=== PATIENT | male | born 1960 | race Caucasian/White ===

== ENCOUNTER → 2021-03-30 15:06 | Outpatient (CLI) | payer OTHER, SELFPAY ==
--- NOTE | ~2021-03-30 | XR_ITS ---
XR knee RT min 4V 03/30/2021 15:46 Indication: Right knee pain Procedure: 4 views right knee Comparison: 02/02/2000 Findings: There is joint space narrowing medial compartment of the right knee. Small joint effusion. No fracture, subluxation or dislocation. Impression: 1: Mild osteoarthritis of the right knee primarily involving the medial compartment. Reviewed, dictated and finalized at location A. Impression: 1: Mild osteoarthritis of the right knee primarily involving the medial compart ment.
== END ==
PROVIDERS: PCP Family Medicine; Visit Provider Physician Assistant
DX: M17.11 Unilateral primary osteoarthritis, right knee (principal)
CPT/HCPCS: 73564

== ENCOUNTER → 2021-04-24 01:03 | Outpatient (CLI) | payer OTHER, SELFPAY ==
[2021-04-24 17:04] LABS: SARS-CoV-2 RNA PCR Negative
== END ==
PROVIDERS: PCP Family Medicine; Visit Provider Orthopaedic Surgery
DX: Z01.812 Encounter for preprocedural laboratory examination (principal); Z20.822 Contact with and (suspected) exposure to COVID-19
CPT/HCPCS: C9803; U0003; U0005

== ENCOUNTER 2021-04-26 09:18 | Outpatient (CLI) | payer OTHER, SELFPAY ==
--- NOTE | 2021-04-26 09:30 | ECG_ITS ---
Measurements Intervals [place] Rate: 80 P: 41 AR: 180 QRS: 48 QRSD: 105 T: 50 QT: 364 QTc: 420 Interpretive Statements SINUS RHYTHM CANNOT RULE OUT SEPTAL INFARCT, AGE INDETERMINATE BASELINE ARTIFACT- I, II, III, AVR, AVL, AVF ABNORMAL ECG Electronically Signed On 04-26-2021 9:37:48 CDT by Eren Marroquin D.O.
[2021-04-26 10:01] LABS: Anion Gap 8 mmol/L (8-16); Blood Urea Nitrogen 14 mg/dL (9-20); Calcium 9.6 mg/dL (8.4-10.2); Carbon Dioxide 30 mmol/L (22-30); Chloride 101 mmol/L (98-107); Estimated Glomerular Filt Rate > 60; Glucose 116 mg/dL (65-110); Sodium 139 mmol/L (137-145)
== END 2021-04-26 09:19 | disposition home or self-care (01) ==
LOC: ANHSURGERY 09:22
PROVIDERS: Anesthesiology; PCP Family Medicine; Visit Provider Orthopaedic Surgery
DX: Z01.818 Encounter for other preprocedural examination (principal); I10 Essential (primary) hypertension; Z79.899 Other long term (current) drug therapy; R94.31 Abnormal electrocardiogram [ECG] [EKG]
CPT/HCPCS: 36415; 80048; 93005

== ENCOUNTER 2021-04-27 03:43 | Day surgery (SDC) | payer OTHER, SELFPAY ==
[2021-04-23 11:53] VITALS: BMI 31.4
--- NOTE | 2021-04-26 12:11 | WPDANESEPPF ---
Anes - Initial Pre Proc Eval Procedure: Operation Date: 04/27/21 14:00 Proposed Procedures p Right Knee Arthroscopy, Partial Medial Meniscectomy - Herb Mcfadden MD Date/Time: 04/26/21 12:11 Surgeon: Herb Mcfadden MD Pre Op Diagnosis: right knee medial meniscus tear Patient Data Age: 60 Gender: M Height: 1.88 m Weight: 111.13 kg Allergies Allergy/AdvReac Type Severity Reaction Status Date / Time No Known Allergies Allergy Verified 04/27/21 12:00 Home Medications Medication Instructions Recorded Confirmed Type hydrochlorothiazide 12.5 mg tablet 12.5 mg PO DAILY #90 tablet 07/16/20 04/27/21 Rx amlodipine 5 mg-valsartan 320 mg See Rx Instructions .ROUTE 12/29/20 04/27/21 Rx tablet .COMPLEX #90 tablet hydrocodone 5 mg-acetaminophen 325 1 tablet PO Q6H PRN #30 tablet 04/13/21 04/23/21 Rx mg tablet Patient hx anesthesia problems: none Family hx anesthesia problems: none Results Review: All pre-operative results and documents have been reviewed as part of the pre-operative evaluation. FORMERLY [facility], [facility] Past Medical History Medical History (Updated 04/27/21 @ 12:18 by Manjit Atkinson DO) Hypertension Surgical History Surgical History History of left knee surgery Family History Family History Mother Hypertension Father Malignant neoplasm of prostate Social History Social History Smoking packs per day: 1.5 Smoking cigarettes per day: 30.0 Years smoked: 10 Smoking pack-years: 15.00 Smoking status: Former smoker Smokeless tobacco user: chewing tobacco Smoking end date: 07/10/95 Alcohol intake: current Drinks per week: 1 Alcohol use details: rare Substance use: never Substance use type: does not use Living arrangements: with family 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 Informed Consent: The patient's anesthetic plan and its attendant risks and benefits were discussed with the patient/family/POA. Questions were solicited and answers provided to the satisfaction of the patient/family/POA.
[2021-04-27] VITALS (8 sets, daily range): BP systolic 127–153; BP diastolic 65–92; PULSE 58–88; RESP 10–18; TEMP 36.3–36.6; O2SAT 98–100
[2021-04-27] MEDS: LACTATED RINGERS 1,000 ML 30 ML IV CONT ×2 (12:20→14:32)
[2021-04-27] MEDS: ACETAMINOPHEN 500 MG TABLET 1000 MG PO (12:21)
[2021-04-27] MEDS: KETOROLAC 15 MG/ML VIAL (*BKC) IV PUSH (12:22)
--- NOTE | 2021-04-27 13:30 | WPDHPUPDATE1 ---
History and Physical Update Update Date/Time: 04/27/21 13:30 History and Physical has been reviewed, including an updated exam of the patient. There are NO changes in the patient's condition. Risks, benefits, and alternatives have been discussed and questions answered. Patient agrees to proceed with procedure.
[2021-04-27] MEDS: ceFAZolin 2 GM/D5W 50 ML 2 GM/50 ML BAG IVPB (13:39)
[2021-04-27] MEDS: BUPIVACAINE HCL 0.5% PF 30 ML VIAL INFILTRATE (14:09)
--- NOTE | 2021-04-27 16:44 | W.PM.PROC2 ---
Procedure Note - Detailed Date of Procedure 04/27/21 Pre-op Diagnosis Right knee medial meniscus tear Post-op Diagnosis same Procedure Performed Arthroscopic partial medial meniscectomy, right knee. Surgeon Herb Mcfadden MD Electrical Maintenance Man Afua Dorantes PA-C Anesthesia general Findings Extensive parrot beak tear. Highly unstable flap. Subtotal meniscectomy posterior and medial. Medial femur chondromalacia grade 2/3, medial tibia grade 1. Lateral femur chondromalacia grade 0/1, lateral tibia grade 0. Patellar grade 1, trochlea grade 0. No MCL laxity. ACL slightly irregular contour as noted on the MRI, but without evidence for acute injury. Mohsen's test under direct vision appeared negative with normal ACL function. Description of Procedure The patient was identified and the surgical site confirmed and signed in the preoperative holding area. Antibiotics were started per protocol. He was brought to the operative room and transferred to the OR table. A general anesthetic was administered. Supine position with the operative lower extremity position in the leg cooper after placement of a well padded tourniquet. The leg support was lowered and the contralateral limb was supported with a soft bolster. The knee was prepped and draped in the usual sterile fashion. A time-out was performed. The portal sites were marked and infiltrated with 0.5% Marcaine 20 mL. The limb was exsanguinated and the tourniquet inflated to 300 mL Hg. Standard inferolateral and inferomedial portals were established. Inflow was obtained with the saline pump. The camera was introduced. Diagnostic inspection of the joint was accomplished. The meniscus was debrided with the arthroscopic shaver and punches until stable. The radiofrequency probe was also used for further d?bridement. Gentle chondroplasty performed on the medial femoral condyle. The arthroscopic instruments were removed. The tourniquet released and wounds closed with subcutaneous 4-0 Monocryl absorbable suture. Steri strips and a sterile dressing were applied. A light elastic wrap was placed. The patient was extubated and brought to the recovery room in stable condition. Estimated Blood Loss -5.0 Tourniquet Time 15 Drains No Complications No immediate complications Condition stable Disposition PACU
== END 2021-04-27 16:10 | disposition home or self-care (01) ==
PROVIDERS: PCP Family Medicine; Visit Provider Orthopaedic Surgery
PROC: (CPT 29870; principal; 2021-04-27 14:00)
DX: S83.241A Other tear of medial meniscus, current injury, right knee, initial encounter (principal); X50.0XXA Overexertion from strenuous movement or load, initial encounter; I10 Essential (primary) hypertension; Z87.891 Personal history of nicotine dependence; E66.9 Obesity, unspecified; Z68.31 Body mass index [BMI] 31.0-31.9, adult
CPT/HCPCS: 29881; A9270; J0690; J1100; J1885; J2250; J2405; J2704; J3010; J7120

== ENCOUNTER 2023-04-11 08:24 | Outpatient (CLI) | payer OTHER, SELFPAY ==
--- NOTE | 2023-04-24 11:24 | WPDHOMESLEEP ---
Sleep Study - Home Unattended Date of Study: 04/11/23 Ordering Provider: Jesse Mariee MD Interpreting Provider: Radha Whyte MD Home Sleep Study Type: Watch PAT Height: 1.88 m Weight: 113.398 kg Body Mass Index: 32.1 Neck Circumference (inches): 17 [place]: 20 Reason for Sleep Study Hypersomnolence Sleep History Ja Blankenship is a 62-year-old man with loud snoring, nighttime awakenings and feeling tired during the day. His medical co-morbidities include hypertension and gastroesophageal reflux disease. He had a sleep study 8 years ago, reports that it was a bad experience with no definitive results. He is having a home sleep test to re-evaluate. He frequently awakens from sleep feeling short of breath. He frequently wakes at night with heartburn, belching or coughing.??He constantly snores, constantly snores loudly enough that others complain. He frequently has trouble sleeping when he has a cold. He occasionally wakes up gasping for breath during the night. He frequently has breathing problems at night. He frequently sweats excessively at night. He frequently notices his heart pounding or beating irregularly during the night. He frequently falls asleep during the day. He occasionally falls asleep involuntarily, frequently falls asleep while driving. He never experiences loss of muscle tone with strong emotion. 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 He never feels paralyzed on waking or falling asleep. He occasionally experiences vivid dreams upon waking or falling asleep. He never feels afraid of going to sleep. He occasionally has nightmares. He rarely recalls his dreams. He occasionally has thoughts racing through his mind. He rarely feels sad or depressed. He frequently feels anxiety. He frequently notices parts of his body jerk. He frequently kicks during the night. He constantly feels crawling or aching feelings in his legs. He constantly feels leg pain at night. He never grinds his teeth, never has morning jaw pain. He constantly feels bothered by pain during the day, frequently awakened by pain during the night. He constantly wakes up feeling stiff in the morning, constantly wakes feeling sore or achy in the morning. He constantly awakens with pain in his neck, spine, or joints. Normal bedtime is 7:00 p.m., usually falling asleep within 2 minutes. He wakes between 2 and 3 times at night to go to the bathroom. His normal wake time is 2:10 a.m. on week days. On weekends, his bedtime is later, 9:00 p.m., and his wake time us 7:00 a.m. He typically gets about 5 hours of sleep per night. He has memory problems, bowel disturbances, headache, fatigue and he takes antacids regularly. He takes naps in the afternoon or evening. A short nap lasting 10 or 15 minutes is not refreshing. He is usually drowsy for 2 hours after waking. He is tired in the morning with back pain, he is drowsy in the afternoon and he feels tired in the evening. Habits:??Tobacco:no comment Caffeine:2 per day. Alcohol:none Recreational substances: none PMFSH Past Medical History Medical History (Updated 04/24/23 @ 11:37 by Radha Whyte MD) Gastroesophageal reflux disease without esophagitis Hypertension Obstructive sleep apnea (adult) (pediatric) Surgical History Surgical History History of left knee surgery History of meniscectomy of right knee (~04/27/21) Partial Medial Family History Family History Mother Hypertension Father Malignant neoplasm of prostate Social History Social History Smoking packs per day: 1.5 Smoking cigarettes per day: 30.0 Years smoked: 10 Smoking pack-years: 15.00 Smoking status: Never smoker Smokeless tobacco user: chewing tobacco Smoking end date:
[2023-04-24 11:54] VITALS: BMI 32.1
== END 2023-04-11 15:30 | disposition home or self-care (01) ==
PROVIDERS: PCP Family Medicine; Visit Provider Family Medicine
DX: G47.30 Sleep apnea, unspecified (principal); G47.33 Obstructive sleep apnea (adult) (pediatric); Z68.32 Body mass index [BMI] 32.0-32.9, adult
CPT/HCPCS: 95800

== ENCOUNTER 2023-05-17 06:16 | Day surgery (SDC) | payer OTHER, SELFPAY ==
[2023-05-08 15:02] VITALS: BMI 32.2
--- NOTE | 2023-05-17 06:42 | P.PNAN_ITS ---
Anes - Initial Pre Proc Eval Procedure: Operation Date: 05/17/23 09:00 Proposed Procedures p Excision 4.5cm Mid Back Mass - Edson Franklin DO Date/Time: 05/17/23 06:42 Surgeon: Edson Franklin DO Pre Op Diagnosis: Back Mass Patient Data Age: 62 Gender: M Height: 1.88 m Weight: 113.852 kg Allergies Allergy/AdvReac Type Severity Reaction Status Date / Time No Known Allergies Allergy Verified 05/17/23 07:34 Home Medications Medication Instructions Recorded Confirmed Type amlodipine 5 mg-valsartan 320 mg See Rx Instructions .Route 04/21/23 05/17/23 Rx tablet .COMPLEX #90 tabs hydrochlorothiazide 12.5 mg tablet 12.5 mg PO DAILY #90 tabs 04/21/23 05/17/23 Rx zolpidem 10 mg tablet (Ambien) 10 mg PO ONCE #2 tabs 04/28/23 05/17/23 Rx Patient hx anesthesia problems: none Family hx anesthesia problems: none Results Review: All pre-operative results and documents have been reviewed as part of the pre- operative evaluation. [facility] Past Medical History Medical History Anxiety Gastroesophageal reflux disease without esophagitis Hypertension Obstructive sleep apnea (adult) (pediatric) Surgical History Surgical History History of left knee surgery History of meniscectomy of right knee (~04/27/21) Partial Medial Family History Family History Mother Hypertension Father Malignant neoplasm of prostate Social History Social History Smoking packs per day: 1.5 Smoking cigarettes per day: 30.0 Years smoked: 10 Smoking pack-years: 15.00 Smoking status: Never smoker Smokeless tobacco user: chewing tobacco Smoking end date: 07/10/95 Alcohol intake: current Drinks per week: 1 Alcohol use details: rare Substance use: never Substance use type: does not use Living arrangements: with family Occupation/Education: occupation 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 Informed Consent: The patient's anesthetic plan and its attendant risks and benefits were discussed with the patient/family/POA. Questions were solicited and answers provided to the satisfaction of the patient/family/POA.
[2023-05-17 07:30] VITALS: BP 139/87; PULSE 77; RESP 20; TEMP 36.3; O2SAT 97
[2023-05-17] MEDS: LACTATED RINGERS 1,000 ML 30 ML IV CONT (08:01)
--- NOTE | 2023-05-17 09:06 | WPDHPUPDATE1 ---
History and Physical Update Update Date/Time: 05/17/23 09:06 History and Physical has been reviewed, including an updated exam of the patient. There are NO changes in the patient's condition. Risks, benefits, and alternatives have been discussed and questions answered. Patient agrees to proceed with procedure.
[2023-05-17] MEDS: LIDO 1%/EPINEPHRINE 1:100,000 50 ML VIAL 10 ML INFILTRATE (09:54)
[2023-05-17] MEDS: BACITRACIN/POLYMYXIN B OINT 15 GM TUBE 1 APPLIC TOPICAL (09:55)
--- NOTE | 2023-05-17 10:05 | P.OP_ITS ---
Procedure Note - Detailed Date of Procedure 05/17/23 Pre-op Diagnosis Back Mass Post-op Diagnosis Same Procedure Performed excision of 4.5 cm mid back mass Surgeon Edson Franklin, DO Anesthesia MAC and Local ( 1% lidocaine with epinephrine) Indications this is a 62-year-old man who presented with a mid back mass that was causing discomfort. He had a prior history of this becoming red and draining a thick white material. It is currently not draining anything, but is still causes some discomfort. Discussions were made with the patient about treatment options and decision was made to proceed with excision of 4.5 cm back mass. Findings The 4.5 cm back mass was incised. This appeared to be likely a cyst on the surface, but as I dissected deeper there also appeared to be a lipoma associated with it. The entire mass was excised and sent to the lab for pathology. Description of Procedure Procedure as well as risks, benefits, and alternatives were discussed with the patient. Written consent was obtained and placed in chart prior to procedure. Patient was brought back to surgical suite. He was placed in left lateral decubitus position on the operating table. Time-out was done to confirm patient and procedure. IV sedation was then administered by the anesthesia department. His back area was prepped and draped in sterile fashion using chlorhexidine prep. 1% lidocaine with epinephrine was infiltrated locally around the mass. A vertical elliptical incision was then made around the mass using a 15 blade scalpel. The mass was sharply excised using the 15 blade scalpel. The mass was completely excised intact and was sent to the lab for pathology. Hemostasis was then achieved with electrocautery. The wound bed was then inspected no other masses or abnormalities were noted. The wound edges were then reapproximated using 3-0 nylon vertical mattress interrupted sutures. Bacitracin ointment was then applied followed by 4 x 4 gauze and Medipore tape. The patient was then aw akened from anesthesia and transferred to recovery. Estimated Blood Loss 5 Pathology Yes (Back mass) Complications No immediate complications Condition Stable Disposition Same day [facility] Billing Surgery - Charge Forward: Surgery Billing
[2023-05-17 10:07] VITALS: BP 112/67; PULSE 67; RESP 16; O2SAT 97
[2023-05-17 10:17] VITALS: BP 119/76; PULSE 69; RESP 16; O2SAT 97
--- NOTE | 2023-05-17 10:17 | WPDANESPN ---
Anes - Prog Note Post-Op Date/Time: 05/17/23 10:17 Cardiovascular status: normal Respiratory status: normal Airway patency: baseline Mental status: baseline Post-Op hydration status: normal Vital Signs: Last Vital Signs Temp 36.3 C L 05/17/23 07:30 Pulse 67 05/17/23 10:07 Resp 16 05/17/23 10:07 BP 112/67 05/17/23 10:07 Pulse Ox 97 05/17/23 10:07 O2 Del Method Room Air 05/17/23 10:07 Pain Score (VAS): 0 I/O: Intake & Output 05/16/23 05/17/23 05/17/23 23:59 07:59 15:59 Intake Total 400 Balance 400 Post-procedural complaints: none Patient Feedback: Patient satisfied with anesthetic care. Other Findings: Patient vital signs back to baseline. Patient denies nausea and vomiting. Patient's pain under control. Patient OK for discharge.
[2023-05-17 10:27] VITALS: BP 113/80; PULSE 66; RESP 15; O2SAT 99
[2023-05-17 10:37] VITALS: BP 113/80; PULSE 66; RESP 15; O2SAT 99
== END 2023-05-17 10:40 | disposition home or self-care (01) ==
PROVIDERS: PCP Family Medicine; Visit Provider Surgery
PROC: (CPT 21931; principal; 2023-05-17 09:00)
DX: R22.2 Localized swelling, mass and lump, trunk (principal)
CPT/HCPCS: 21931

== ENCOUNTER 2023-05-17 07:00 | Outpatient (NON) | payer OTHER, SELFPAY | END 2023-05-17 07:01 | disposition home or self-care (01) | LOC: ANHLAB 05-18 11:14 | PROVIDERS: PCP Family Medicine; Visit Provider Surgery | DX: D17.1 Benign lipomatous neoplasm of skin and subcutaneous tissue of trunk (principal); L30.8 Other specified dermatitis | CPT/HCPCS: 88304 ==

== ENCOUNTER 2023-10-06 06:58 | Outpatient (CLI) | payer OTHER, SELFPAY ==
--- NOTE | ~2023-10-06 | XR_ITS ---
EXAMINATION: XR knee RT min 4V DATE: 10/06/2023 07:20 INDICATION: Right knee pain TECHNIQUE: Four views of the right knee were obtained. COMPARISON: 03/30/2021 FINDINGS: Alignment is normal. No fracture or osteochondral lesion. There is mild narrowing of the me dial compartment without significant change. There is a small knee joint effusion. Soft tissues are u nremarkable. IMPRESSION: 1. Chronic narrowing of the medial compartment without acute osseous abnormality. Reviewed, dictated and finalized at location A. IMPRESSION: 1. Chronic narrowing of the medial compartment without acute osseous abnormalit y.
--- NOTE | ~2023-10-06 | XR_ITS ---
EXAMINATION: XR knee LT min 4V DATE: 10/06/2023 07:20 INDICATION: Left knee pain TECHNIQUE: Four views of the left knee were obtained. COMPARISON: None. FINDINGS: Alignment is normal. No fracture or osteochondral lesion. There is moderate joint space simón rowing of the medial compartment. No joint effusion/synovitis. Soft tissues are unremarkable. IMPRESSION: 1. Moderate joint space narrowing of the medial compartment without acute osseous abnormality. Reviewed, dictated and finalized at location A. IMPRESSION: 1. Moderate joint space narrowing of the medial compartment without acute osseo us abnormality.
== END 2023-10-06 06:59 | disposition home or self-care (01) ==
LOC: ANHIMG 07:01
PROVIDERS: PCP Family Medicine; Visit Provider Orthopaedic Surgery
DX: M25.861 Other specified joint disorders, right knee (principal); M25.862 Other specified joint disorders, left knee
CPT/HCPCS: 73564

== ENCOUNTER 2024-03-08 16:39 | Outpatient (CLI) | payer OTHER, SELFPAY ==
--- NOTE | ~2024-03-08 | CT_ITS ---
EXAMINATION:CT lung screening DATE: 03/08/2024 16:55 INDICATION: Personal history of nicotine dependence. Smoker who quit 15 years ago with 22 pack year h istory. TECHNIQUE: Computed tomography (CT) of the chest was performed without intravenous contrast. Automate d exposure control and iterative reconstruction technique were employed. The dose-length product (DLP ) was 290.55 mGy-cm. COMPARISON: None. FINDINGS: Calcified bilateral pulmonary nodules are consistent with old granulomatous disease. There is mild scarring in paraspinal right lower lobe. No pleural effusion. The heart size is normal. There are coronary artery calcifications. No pericardial effusion. There is a small sliding hiatal hernia. There are gallstones in the gallbladder, which is normal in size. There is mild thoracic spondylosis . Upper thoracic levoscoliosis is noted. IMPRESSION: 1. Lung-RADS category 2: Benign appearance or behavior. Continue annual screening with noncontrast lo w-dose chest CT in 12 months. Reviewed, dictated and finalized at location A. IMPRESSION: 1. Lung-RADS category 2: Benign appearance or behavior. Continue annual screeni ng with noncontrast low-dose chest CT in 12 months.
== END 2024-03-08 16:40 | disposition home or self-care (01) ==
LOC: ANHIMG 16:42
PROVIDERS: PCP Family Medicine; Visit Provider Family Medicine
DX: Z12.2 Encounter for screening for malignant neoplasm of respiratory organs (principal); Z87.891 Personal history of nicotine dependence
CPT/HCPCS: 71271

== ENCOUNTER 2024-08-19 00:24 | Day surgery (SDC) | payer OTHER, SELFPAY ==
[2024-08-08 10:03] VITALS: BMI 33.0
[2024-08-19 08:02] VITALS: BP 155/81; PULSE 73; RESP 16; TEMP 36.6; O2SAT 97; BMI 32.3
[2024-08-19] MEDS: LACTATED RINGERS 1,000 ML 150 ML IV CONT (08:19)
--- NOTE | 2024-08-19 08:25 | P.PNAN_ITS ---
Anes - Initial Pre Proc Eval Procedure: Operation Date: 08/19/24 09:30 Proposed Procedures p Screening Colonoscopy - Deo Granado MD Date/Time: 08/19/24 08:25 Surgeon: Deo Granado MD Pre Op Diagnosis: screening colon Patient Data Age: 63 Gender: M Height: 1.85 m Weight: 111.1 kg Last Vital Signs Temp 97.9 F 08/19/24 08:02 Pulse 73 08/19/24 08:02 Resp 16 08/19/24 08:02 BP 155/81 H 08/19/24 08:02 Pulse Ox 97 08/19/24 08:02 O2 Del Method Room Air 08/19/24 08:02 Allergies Allergy/AdvReac Type Severity Reaction Status Date / Time No Known Allergies Allergy Verified 08/19/24 08:07 Home Medications ?Medication ?Instructions ?Recorded ?Confirmed ?Type amlodipine 5 mg-valsartan 320 mg See Rx Instructions .Route 04/21/23 08/19/24 Rx tablet .COMPLEX #90 tabs hydrochlorothiazide 12.5 mg tablet 12.5 mg PO DAILY #90 tabs 09/25/23 08/19/24 Rx Patient hx anesthesia problems: none Family hx anesthesia problems: none Results Review: All pre-operative results and documents have been reviewed as part of the pre- operative evaluation. [facility] Past Medical History Medical History Dermoid cyst of skin of back Anxiety Hypertension Gastroesophageal reflux disease without esophagitis Obstructive sleep apnea (adult) (pediatric) Surgical History Surgical History History of meniscectomy of right knee (~04/27/21) Partial Medial History of left knee surgery Family History Family History Mother Hypertension Father Malignant neoplasm of prostate Social History Social History Smoking packs per day: 1.5 Smoking cigarettes per day: 30.0 Years smoked: 10 Smoking pack-years: 15.00 Smoking status: Former smoker Smokeless tobacco user: chewing tobacco Smoking end date: 07/10/95 Alcohol intake: current Alcohol use details: rare Substance use: never Substance use type: does not use Do You Feel Safe in your Home?: Yes Lack of Transportation: No Lack of Food: Never True Current Housing: I Have Housing Concerned About Future Housing: No Difficulty Paying Gas/Electric Bills: No Difficulty Paying for Meds: No Currently Unemployed: No Education: Associate Degree Difficulty w/ Childcare or Family Care: No Living arrangements: with family 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 ) Neurological: alert and oriented Last oral intake: >/= 8 hours ASA classification: II Emergent: no Anesthetic plan: proceed Anesthesia type and monitoring: general GIVS and standard monitoring Results Review: All pre-operative results and documents have been reviewed as part of the pre- operative evaluation. Informed Consent: The patient's anesthetic plan and its attendant risks and benefits were discussed with the patient/family/POA. Questions were solicited and answers provided to the satisfaction of the patient/family/POA.
--- NOTE | 2024-08-19 08:44 | PM.HPGS ---
History of Present Illness History of Present Illness Consent: Risks, benefits, and alternatives have been discussed and questions answered. Patient agrees to proceed with procedure. Chief complaint: screening colon Narrative: Ja Blankenship is a 63 year old male here for screening colonoscopy, last one 2012 Review of Systems Review of Systems: All systems reviewed & are unremarkable except as noted in HPI and below PMFSH Past Medical History Medical History Dermoid cyst of skin of back Anxiety Hypertension Gastroesophageal reflux disease without esophagitis Obstructive sleep apnea (adult) (pediatric) Surgical History Surgical History History of meniscectomy of right knee (~04/27/21) Partial Medial History of left knee surgery Family History Family History Mother Hypertension Father Malignant neoplasm of prostate Social History Social History Smoking packs per day: 1.5 Smoking cigarettes per day: 30.0 Years smoked: 10 Smoking pack-years: 15.00 Smoking status: Former smoker Smokeless tobacco user: chewing tobacco Smoking end date: 07/10/95 Alcohol intake: current Alcohol use details: rare Substance use: never Substance use type: does not use Do You Feel Safe in your Home?: Yes Lack of Transportation: No Lack of Food: Never True Current Housing: I Have Housing Concerned About Future Housing: No Difficulty Paying Gas/Electric Bills: No Difficulty Paying for Meds: No Currently Unemployed: No Education: Associate Degree Difficulty w/ Childcare or Family Care: No Living arrangements: with family Occupation/Education: occupation 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 Spiritual care concerns: No Meds Home Medications and Allergies Home Medications ?Medication ?Instructions ?Recorded ?Confirmed ?Type amlodipine 5 mg-valsartan 320 mg See Rx Instructions .Route 04/21/23 08/19/24 Rx tablet .COMPLEX #90 tabs hydrochlorothiazide 12.5 mg tablet 12.5 mg PO DAILY #90 tabs 09/25/23 08/19/24 Rx Allergies Allergy/AdvReac Type Severity Reaction Status Date / Time No Known Allergies Allergy Verified 08/19/24 08:07 Vital Signs Vital Signs - 24 hr 08/19/24 08:02 Temperature 97.9 F Pulse Rate 73 Respiratory Rate 16 Blood Pressure 155/81 H Pulse Oximetry 97 Oxygen Delivery Room Air Exam Const: General: comfortable and no acute distress HENMT: Face/Nose/Sinus: Normal nares present Eyes: General: appearance normal, both eyes and all related structures Neck: Neck: no JVD Resp: Auscultation: clear to auscultation bilaterally Cardio: Rate: regular rate Rhythm: regular rhythm GI: Inspection: non-distended GI Palp: Yes Soft to palpation Skin: General skin exam: normal color Neuro: Speech: normal speech Extrem: General: normal to inspection Psych: Mental Status: mental status grossly normal Assessment and Plan Assessment and plan (1) Colon cancer screening: Code(s): Z12.11 - Encounter for screening for malignant neoplasm of colon Status: Acute Assessment and Plan: colonoscopy
[2024-08-19 09:04] VITALS: BP 105/68; PULSE 62; RESP 19; O2SAT 97
[2024-08-19 09:14] VITALS: BP 116/71; PULSE 58; RESP 21; O2SAT 97
[2024-08-19 09:24] VITALS: BP 123/73; PULSE 65; RESP 13; O2SAT 96
== END 2024-08-19 09:30 | disposition home or self-care (01) ==
PROVIDERS: PCP Family Medicine; Visit Provider Internal Medicine Gastroenterology
PROC: 0DJD8ZZ Inspection of Lower Intestinal Tract, Via Natural or Artificial Opening Endoscopic (ICD-10-PCS; CPT 45378; principal; 2024-08-19 09:30)
DX: Z12.11 Encounter for screening for malignant neoplasm of colon (principal); D12.3 Benign neoplasm of transverse colon; K64.8 Other hemorrhoids; K57.30 Diverticulosis of large intestine without perforation or abscess without bleeding; I10 Essential (primary) hypertension; F41.9 Anxiety disorder, unspecified; K21.9 Gastro-esophageal reflux disease without esophagitis; G47.33 Obstructive sleep apnea (adult) (pediatric); F17.220 Nicotine dependence, chewing tobacco, uncomplicated; E66.9 Obesity, unspecified; Z68.32 Body mass index [BMI] 32.0-32.9, adult; Z98.890 Other specified postprocedural states; Z80.42 Family history of malignant neoplasm of prostate
CPT/HCPCS: 45380; 88305; J2003; J2704; J7120

== ENCOUNTER 2024-11-24 07:02 | Outpatient (CLI) | payer OTHER, SELFPAY ==
--- OUTSIDE RECORDS SUMMARY | 2024-11-24 07:08 | XMS_ITS ---
Author Organization Unknown Address [address], [place] [id number] Phone Care Team Providers Care Divinity Professor Name Role Phone KATALINA HODGE CC Attending Unavailable Immunization Immunization Date Status Additional Notes Code Code System COVID-19, mRNA, LNP-S, PF, 1 00 mcg/0.5mL dose or 50 mcg/0.25mL dose 05/15/2021 Completed 207 CVX COVID-19, mRNA, LNP-S, PF, 1 00 mcg/0.5mL dose or 50 mcg/0.25mL dose 04/17/2021 Completed 207 CVX Influenza, split virus, quadrivalent, PF 04/23/2018 Completed 150 CVX Social History Type Status Start Date End Date Code Code Syst em Sex Male Hospital Discharge Instructions Should you have any questions prior to discharge, please contact a member of your healthcare team. If you have left the hospital and have any questions, please contact your primary care physician. Reason For Referral No Data Found Plan of Treatment No Data Found Encounters Encounter Diagnosis Start Date Code Code Sys tem History and physical examination, pre-employment 03/13 [id number] SNOMED-CT Personal Care Team Section Performer Name Performer Role Active Date Inactive Da te
== END 2024-11-24 07:03 | disposition home or self-care (01) ==
PROVIDERS: PCP Family Medicine; Visit Provider Family Medicine
DX: M79.671 Pain in right foot (principal)
CPT/HCPCS: 73630

== ENCOUNTER 2025-01-12 07:51 | Outpatient (CLI) | payer OTHER, SELFPAY ==
--- NOTE | ~2025-01-12 | XR_ITS ---
EXAM: XR knee RT min 4V DATE: 01/12/2025 08:13 HISTORY: M17.11 - Unilateral primary osteoarthritis, right knee . COMPARISON: 05/22/2024, images only; 10/06/2023. FINDINGS: Decreased mineralization. No fracture or dislocation. No lytic or blastic lesion. Severe m edial joint space narrowing. Mild tricompartmental osteophytosis. Minimal joint effusion. No erosion or periosteal change. Soft tissues within normal limits. IMPRESSION: Tricompartmental osteoarthritis of the right knee, severe in the medial compartment. Reviewed, dictated and finalized at location K. IMPRESSION: Tricompartmental osteoarthritis of the right knee, severe in the me dial compartment.
--- NOTE | ~2025-01-12 | XR_ITS ---
EXAM: XR knee LT min 4V DATE: 01/12/2025 08:13 HISTORY: M17.12 - Unilateral primary osteoarthritis, left knee . COMPARISON: 05/22/2024, images only; 10/06/2023. FINDINGS: Decreased mineralization. No fracture or dislocation. No lytic or blastic lesion. Severe m edial joint space narrowing. Mild tricompartmental osteophytosis. Minimal left knee joint effusion. N o erosion or periosteal change. Soft tissues within normal limits. IMPRESSION: Tricompartmental left knee osteoarthritis, severe in the medial compartment. Reviewed, dictated and finalized at location K. IMPRESSION: Tricompartmental left knee osteoarthritis, severe in the medial com partment.
--- OUTSIDE RECORDS SUMMARY | 2025-01-12 07:54 | XMS_ITS ---
Author Organization Unknown Address [address] [place], [place] [id number] Phone Care Team Providers Care Front Window Cashier Name Role Phone KATALINA HODGE CC Attending [...] tem History and physical examination, pre-employment 03/13 [id number] SNOMED-CT Personal Care Team Section Performer Name Performer Role Active Date Inactive Da te
== END 2025-01-12 07:52 | disposition home or self-care (01) ==
PROVIDERS: PCP Family Medicine; Visit Provider Orthopaedic Surgery
DX: M17.11 Unilateral primary osteoarthritis, right knee (principal); M17.12 Unilateral primary osteoarthritis, left knee
CPT/HCPCS: 73564